=== PATIENT | female | born 2000 | race Caucasian/White ===

== ENCOUNTER 2018-11-08 15:30 | Emergency (ER) | payer OTHER ==
[~2018-11-08] VITALS: Ht 165.1 cm; Wt 70.0 kg
[2018-11-08 15:44] VITALS: Ht 165.1 cm; Wt 70.0 kg
--- NOTE | 2018-11-08 16:38 | ERD ---
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 Patient is Rh-. She denies vaginal bleeding, no abdominal or pelvic pain, no fevers or chills, no dysuria, no chest pain or shortness of breath. ROS All systems reviewed and are negative except as per history of present illness. FmHx Family History: No diabetes Physical Exam Vitals Vital Signs Date Temp Pulse Resp B/P (MAP) Pulse Ox O2 O2 Flow FiO2 Time Delivery Rate 11/08/18 97.8 86 20 110/60 99 Room Air 18:44 (77) 11/08/18 97.8 59 20 100/56 99 15:44 (71) Physical Exam GENERAL: Well-developed, well-nourished, well-hydrated, in no apparent distress, looks nontoxic in appearance CARDIAC: Regular rate and rhythm, no murmurs rubs or gallops LUNGS: Clear bilaterally no wheezing crackles or stridor ABDOMEN: Soft nontender, gravid abdomen, no guarding, no rigidity, no rebound, no psoas sign no obturator sign. EXTREMITIES: No clubbing cyanosis or edema, calves are bilaterally symmetrical, no Homans sign, no popliteal cord sign. Distal pulses equal and bilateral PSYCH: Normal affect without agitation or irritability Procedures/MDM Patient's blood type was AB- and she is a candidate for RhoGam given the recent amniocentesis. I administered 300 mcg IgD IM Patient feels much better at this time, and vital signs are normal, symptoms have improved. I did give strict instructions to return to the ED if symptoms continue or worsen, patient will otherwise follow-up with primary care physician. Patient understood instructions and agreed to plan. Disclaimer: Inadvertent spelling and grammatical errors are likely due to EHR/dictation software use and do not reflect on the overall quality of patient care. Also, please note that the electronic time recorded on this note does not necessarily reflect the actual time of the patient encounter. Departure Diagnosis: Primary Impression: Rh negative status during Trimester: second trimester Qualified Codes: O26.892 - Other specified related conditions, second trimester; Z67.91 - Unspecified blood type, rh negative Condition: MAXINE Hdez MD Nov 08, 2018 16:37
[2018-11-08 18:44] VITALS: BP 110/60; PULSE 86; RESP 20
== END 2018-11-08 18:46 | disposition home or self-care (01) ==
LOC: FTE 15:30
DX: O26.892 Other specified pregnancy related conditions, second trimester (principal); Z3A.21 21 weeks gestation of pregnancy; Z67.91 Unspecified blood type, Rh negative
CPT/HCPCS: 86900; 86901; J2790; Z7502; 99283